=== PATIENT | female | born 2000 | race Caucasian/White ===

== ENCOUNTER 2021-03-09 11:14 | Emergency (ER) | payer OTHER ==
[~2021-03-09] VITALS: Ht 167.6 cm; Wt 53.1 kg
[2021-03-09] MEDS ORDERED: MULTTAB20 PO (11:23)
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
[2021-03-09 12:29] LABS: BASO # 0.1 10^3/uL (0.0-0.2); BASO % 0.8 % (0.0-1.0); EOS # 0.1 10^3/uL (0.0-0.5); EOS % 0.6 % (0.0-3.0); HEMATOCRIT 36.7 % (36.0-47.0); HEMOGLOBIN 12.4 g/dl (12.0-15.5); LYMPH # 2.4 10^3/uL (1.5-5.0); LYMPH % 19.9 % (24.0-44.0); MEAN CORPUSCULAR HEMOGLOBIN 30.5 pg (27.0-33.0); MEAN CORPUSCULAR HGB CONC 33.8 g/dl (32.0-36.5); MEAN CORPUSCULAR VOLUME 90.2 fl (80.0-96.0); MONO # 0.7 10^3/uL (0.0-0.8); MONO % 6.1 % (2.0-8.0); NEUTROPHILS # 8.6 10^3/uL (1.5-8.5); NEUTROPHILS % 72.2 % (36.0-66.0); PLATELET COUNT, AUTOMATED 365 10^3/uL (150-450); RED BLOOD COUNT 4.07 10^6/uL (4.00-5.40)
[2021-03-09 13:35] VITALS: BP 121/82
== END 2021-03-09 13:42 | disposition home or self-care (01) ==
LOC: M ED 11:14
DX: O20.8 Other hemorrhage in early pregnancy (principal); O9A.211 Injury, poisoning and certain other consequences of external causes complicating pregnancy, first trimester; S39.001A Unspecified injury of muscle, fascia and tendon of abdomen, initial encounter; W50.0XXA Accidental hit or strike by another person, initial encounter; Y92.128 Other place in nursing home as the place of occurrence of the external cause; Y99.0 Civilian activity done for income or pay; Z88.1 Allergy status to other antibiotic agents; Z88.2 Allergy status to sulfonamides; Z91.018 Allergy to other foods; Z3A.08 8 weeks gestation of pregnancy

== ENCOUNTER 2021-04-21 22:41 | Emergency (ER) | payer OTHER ==
[~2021-04-21] VITALS: Ht 167.6 cm; Wt 53.4 kg
[~2021-04-21 22:41] MED LIST: MULTTAB20 PO
[2021-04-22 02:30] VITALS: BP 122/76
== END 2021-04-22 02:31 | disposition home or self-care (01) ==
LOC: M ED 22:41
DX: J06.9 Acute upper respiratory infection, unspecified (principal); B34.9 Viral infection, unspecified; Z91.018 Allergy to other foods; Z88.1 Allergy status to other antibiotic agents; Z88.2 Allergy status to sulfonamides

== ENCOUNTER → 2021-05-21 | Outpatient (CLI) | payer OTHER ==
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
== END ==
LOC: M PLAIMG 15:22
PROVIDERS: ATTEND Orthopaedic Surgery Adult Reconstructive Orthopaedic Surgery
DX: M23.91 Unspecified internal derangement of right knee (principal)

== ENCOUNTER 2021-10-17 05:53 | Inpatient (IN) | payer OTHER ==
[~2021-10-17] VITALS: Ht 167.6 cm; Wt 66.2 kg
[2021-10-17] VITALS (45 sets, daily range): BP systolic 93–145; BP diastolic 51–86
[2021-10-17] MEDS ORDERED: HOME MED LIST COMPLETE! XX SCH (06:10)
[2021-10-17] MEDS ORDERED: METHYLERGONOVINE MALEATE 0.2 MG/ML VIAL (J2210) IM PRN (06:40)
[2021-10-17] MEDS ORDERED: OXYTOCIN INJ 10 UNITS/ML VIAL (J2590) IV PRN (06:40)
[2021-10-17] MEDS ORDERED: LACTATED RINGER'S 1000 ML IV ONE (06:40)
[2021-10-17] MEDS ORDERED: OXYTOCIN DRIP 30 UNITS in IV 1 EA IV PRN ×4 (06:40)
[2021-10-17] MEDS: LR 1,000 ML IV SCH ×2 (07:13→14:58)
[2021-10-17 07:15] LABS: HEMATOCRIT 37.5 % (36.0-47.0); HEMOGLOBIN 12.2 g/dl (12.0-15.5); MEAN CORPUSCULAR HEMOGLOBIN 29.2 pg (27.0-33.0); MEAN CORPUSCULAR HGB CONC 32.5 g/dl (32.0-36.5); MEAN CORPUSCULAR VOLUME 89.7 fl (80.0-96.0); PLATELET COUNT, AUTOMATED 383 10^3/uL (150-450); RED BLOOD COUNT 4.18 10^6/uL (4.00-5.40); WHITE BLOOD COUNT 13.7 10^3/uL (4.0-10.0)
[2021-10-17] MEDS ORDERED: OXYTOCIN DRIP 30 UNITS in IV 1 EA IV SCH (09:40)
[2021-10-17] MEDS ORDERED: LR 1,000 ML IV SCH (09:40)
[2021-10-17] MEDS ORDERED: BUTORPHANOL 2 MG/ML INJ (J0595) IV ONE (17:15)
[2021-10-17] MEDS ORDERED: PROMETHAZINE INJ 25 MG/ML VIAL (J2550) IV ONE (17:15)
[2021-10-17] MEDS ORDERED: FENTANYL 2MCG/ML ROPIVACAINE 0.2% IN 0.9% NACL 100ML IVBAG As Ordered ONE (20:31)
[2021-10-17] MEDS ORDERED: EPIDURAL COMMENT XX SCH (21:40)
[2021-10-17] MEDS ORDERED: FENTANYL/ROPIVACAINE/NACL BAG 100 ML EPIDURAL SCH (21:40)
[2021-10-17] MEDS ORDERED: ePHEDrine SULFATE 25 MG/5 ML(5MG/ML) SYRINGE IV PRN (21:40)
[2021-10-17] MEDS ORDERED: NALOXONE INJ 0.4MG/1ML VIAL (J2310 PER 1MG) IV PRN (21:40)
[2021-10-17] MEDS ORDERED: REFRIGERATOR IV KEYS XX PRN (21:40)
[2021-10-17] MEDS ORDERED: ONDANSETRON 4MG/2ML VIAL IV PRN (21:40)
[2021-10-17] MEDS ORDERED: LACTATED RINGER'S 1000 ML IV PRN (21:40)
[2021-10-17] MEDS ORDERED: EPIDURAL/PCA KEYS XX PRN (21:40)
[2021-10-17] MEDS ORDERED: diphenhydrAMINE 50MG/ML VIAL (J1200) IV PRN (21:40)
[2021-10-18] VITALS (14 sets, daily range): BP systolic 95–128; BP diastolic 53–73
[2021-10-18] MEDS ORDERED: RHOGAM 300 MCG (1500 IU) INJ (J2790) IM SCH (01:55)
[2021-10-18] MEDS ORDERED: ANUSOL HC CREAM 30GM TOP PRN (01:55)
[2021-10-18] MEDS ORDERED: MEASLES,MUMPS,RUBELLA VACCINE INJ (MMR-II) (90707) SC SCH (01:55)
[2021-10-18] MEDS ORDERED: DIBUCAINE 1% OINTMENT 30GM TOP PRN (01:55)
[2021-10-18] MEDS ORDERED: MOM 30ML SUSPENSION UDC PO PRN (01:55)
[2021-10-18] MEDS ORDERED: DOCUSATE SODIUM 100MG CAPSULE PO PRN (01:55)
[2021-10-18] MEDS: IBUPROFEN 800 MG TAB PO PRN ×2 (02:47→17:34)
[2021-10-18] MEDS: ACETAMINOPHEN 500 MG TAB PO PRN (02:47)
[2021-10-18] MEDS: PRENATAL VITAMINS CHEWABLE TABLET PO SCH (07:29)
[2021-10-19 05:49] VITALS: BP 120/70
[2021-10-19] MEDS: PRENATAL VITAMINS CHEWABLE TABLET PO SCH (08:59)
[2021-10-19] MEDS: IBUPROFEN 800 MG TAB PO PRN ×2 (09:01→21:00)
[2021-10-19 18:00] VITALS: BP 115/63
[2021-10-20 06:00] VITALS: BP_SYST 112; BP_SYST 129; BP_DIAS 60; BP_DIAS 73
[2021-10-20] MEDS: PRENATAL VITAMINS CHEWABLE TABLET PO SCH (07:40)
[2021-10-20] MEDS: ACETAMINOPHEN 500 MG TAB PO PRN (07:41)
[2021-10-20] MEDS ORDERED: COLA100C5 PO (08:19)
[2021-10-20] MEDS ORDERED: IBUP80TA PO (08:19)
== END 2021-10-20 11:00 | disposition home or self-care (01) | DRG 807 ==
LOC: M LDO 05:53 → M LDI 06:42 → M OBS 10-18 04:52
PROVIDERS: ADMIT Obstetrics & Gynecology; ATTEND Obstetrics & Gynecology
PROC: 3E033VJ Introduction of Other Hormone into Peripheral Vein, Percutaneous Approach (ICD-10-PCS; 2021-10-17)
PROC: 10E0XZZ Delivery of Products of Conception, External Approach (ICD-10-PCS; principal; 2021-10-18)
PROC: 0KQM0ZZ Repair Perineum Muscle, Open Approach (ICD-10-PCS; 2021-10-18)
DX: O48.0 Post-term pregnancy (principal); Z37.0 Single live birth; Z3A.40 40 weeks gestation of pregnancy; O36.8130 Decreased fetal movements, third trimester, not applicable or unspecified; O70.1 Second degree perineal laceration during delivery

== ENCOUNTER → 2022-01-02 | Outpatient (REF) | payer OTHER ==
[~2022-01-02] MED LIST changes: +COLA100C5 PO; +IBUP80TA PO
== END ==
LOC: M LAB REF 11:02
PROVIDERS: ATTEND Physician Assistant
DX: R50.9 Fever, unspecified (principal); J02.9 Acute pharyngitis, unspecified

== ENCOUNTER 2022-11-13 08:14 | Emergency (ER) | payer OTHER ==
[~2022-11-13] VITALS: Ht 167.6 cm; Wt 50.2 kg
[2022-11-13 08:58] LABS: BASO # 0.1 10^3/uL (0.0-0.2); BASO % 0.8 % (0.0-1.0); EOS # 0.1 10^3/uL (0.0-0.5); EOS % 0.7 % (0.0-3.0); HEMATOCRIT 40.7 % (36.0-47.0); HEMOGLOBIN 13.7 g/dl (12.0-15.5); LYMPH # 1.1 10^3/uL (1.5-5.0); LYMPH % 14.5 % (24.0-44.0); MEAN CORPUSCULAR HEMOGLOBIN 30.1 pg (27.0-33.0); MEAN CORPUSCULAR HGB CONC 33.7 g/dl (32.0-36.5); MEAN CORPUSCULAR VOLUME 89.5 fl (80.0-96.0); MONO # 0.5 10^3/uL (0.0-0.8); NEUTROPHILS % 77.7 % (36.0-66.0); PLATELET COUNT, AUTOMATED 350 10^3/uL (150-450); RED BLOOD COUNT 4.55 10^6/uL (4.00-5.40); WHITE BLOOD COUNT 7.7 10^3/uL (4.0-10.0)
[2022-11-13] MEDS ORDERED: KETOROLAC 30 MG/ML 1ML VIAL IV ONE (09:05)
[2022-11-13] MEDS ORDERED: ONDANSETRON 4MG 2ML VIAL IV ONE (09:05)
[2022-11-13] MEDS ORDERED: NS 1,000 ML IV ONE (09:05)
[2022-11-13 09:30] LABS: BLOOD UREA NITROGEN 9 MG/DL (9-23); CALCIUM LEVEL 9.2 MG/DL (8.5-10.1); CARBON DIOXIDE LEVEL 27 MMOL/L (20-31); CHLORIDE LEVEL 103 MMOL/L (98-107); CREATININE FOR GFR 0.69 MG/DL (0.55-1.30); GLOMERULAR FILTRATION RATE > 60.0 (>60); GLUCOSE, FASTING 93 MG/DL (60-100); POTASSIUM SERUM 3.8 MMOL/L (3.5-5.1); SODIUM LEVEL 139 MMOL/L (136-145)
[2022-11-13 09:36] LABS: HCG, SERUM QUALITATIVE NEGATIVE (NEGATIVE)
[2022-11-13] MEDS ORDERED: ONDA4TAB6 PO (11:11)
[2022-11-13 11:28] VITALS: BP 95/54
== END 2022-11-13 11:39 | disposition home or self-care (01) ==
LOC: M ED 08:14
DX: R10.9 Unspecified abdominal pain (principal); R11.2 Nausea with vomiting, unspecified; R19.7 Diarrhea, unspecified
CPT/HCPCS: 74021; 80048; 84703; 85025; 96374; 96375; 99284; J1885; J2405

== ENCOUNTER → 2023-01-23 | Outpatient (CLI) | payer OTHER ==
[~2023-01-23] MED LIST changes: +ONDA4TAB6 PO
== END ==
LOC: M SOG 09:02
PROVIDERS: ATTEND Orthopaedic Surgery
DX: M25.561 Pain in right knee (principal)